=== PATIENT | female | born 1935 | race Two or more races ===

== ENCOUNTER 2018-10-25 11:44 | Emergency (ER) | payer OTHER ==
[~2018-10-25] VITALS: Ht 160 cm; Wt 68.0 kg
[2018-10-25] MEDS ORDERED: COZAAR50 MG PO (12:00)
[2018-10-25] MEDS ORDERED: CLARITIN10 M2 PO (12:01)
[2018-10-25] MEDS ORDERED: ZEGERID 40 MG1 EACH PO (12:01)
[2018-10-25] MEDS ORDERED: TESSALON PERLE100 M1 PO (15:58)
[2018-10-25] MEDS ORDERED: TUSSI PRES-B L120 M1 PO (15:58)
== END 2018-10-25 16:01 | disposition home or self-care (01) ==
LOC: ER 11:44
DX: B34.9 Viral infection, unspecified (principal); J11.1 Influenza due to unidentified influenza virus with other respiratory manifestations